=== PATIENT | female | born 1985 | race Caucasian/White ===

== ENCOUNTER 2023-07-28 13:54 | Emergency (ER) | payer BC ==
--- OUTSIDE RECORDS SUMMARY | 2023-07-28 13:57 | XMS REPORT | Continuity of Care Document ---
Author Name Unknown Address [address] [facility] [place] [address] [facility] [address] [facility] [address] [place] [address] Care Team Providers Care B2B Appointment Setter Name Role Phone CONG ALLEN Primary Care Physician DR CONG Arana Attending Clinician Zachery hernandez [phone] Attending Clinician DR CONG Kelly Admitting Clinician Zachery hernandez Payers Payer Name Policy Type Policy Number Effective Date Expirati on Date Source [facility] [id number] Allergies, Adverse Reactions, Alerts Allergy Name Allergy Type Status Severity Reaction(s) Onset Date Inactive Date Treating Clinician Comments Source PCN (obed avelar) DA Active SEVERE Vomiting [facility] SULFA (sulfona mide) DA Active SEVERE ANXIETY,; Dizziness [facility] Encounters Start Date/Time End Date/Time Encounter Type Admission Type Attending [facility] Care Facility Care Department Encounter ID Source 2022-11-20 14:04:07 Outpatient [facility] E[facility] [id number] [facility] 2022-11-18 12:28:17 Outpatient [facility] [id number] [facility] 2022-12-29 13:12:00 2022-12-29 13:12:00 Outpatient CONG IRVING [id number] [facility] [id number] [facility] 2022-12-29 11:59:00 2022-12-29 12:45:00 Outpatient CONG ALCALA [id number] [facility] [id number] César zurita [facility] l
--- NOTE | 2023-07-28 15:23 | RAD REPORT ---
EXAM DESCRIPTION: RAD - Chest Single View - 07/28/2023 3:06 pm CLINICAL HISTORY: CHEST PAIN Chest pain. COMPARISON: <Comparisons> FINDINGS: Portable technique limits examination quality. The lungs are grossly clear. The heart is normal in size. No displaced fractures. IMPRESSION: No acute intrathoracic process suspected.
[2023-07-28 15:46] LABS: Absolute Eosinophils 0.1 K/uL (0-0.5); Absolute Lymphocytes (CBC) 0.8 K/uL (0.7-4.9); Absolute Monocytes 0.4 K/uL (0.1-1.3); Absolute Neutrophil 3.7 K/uL (1.8-8.0); Basophils % 0.2 % (0-1.3); Eosinophils % 2.4 % (0-4.4); Hematocrit 37.3 % (36.0-45.0); Hemoglobin 12.9 g/dL (12.0-15.0); Lymphocytes % 16.4 % (15.3-44.8); MCH 29.2 pg (27.0-35.0); MCHC 34.6 g/dL (32.0-36.0); MCV 84.3 fL (80-100); MPV 10.7 fL (7.6-11.3); Monocytes % 7.4 % (3.3-12.3); Neutrophils % 73.6 % (41.7-73.7); Nucleated Red Blood Cells % 0.1 % (0-0); Platelets 131 thou/uL (152-406); RBC Red Blood Cell Count 4.43 M/uL (3.86-4.86); Red Cell Distribution Width 13.7 % (12.1-15.2)
[2023-07-28 16:02] LABS: Anion Gap 5.5 mEq/L (5.0-15.0); BUN Blood Urea Nitrogen 13 mg/dL (7-18); Bicarbonate 26 mEq/L (21-32); Glomerular Filtration Rate 76 ml/min (=/>90); Glucose Level 109 mg/dL (74-106); Magnesium 2.2 mg/dL (1.6-2.4); NT PRO-BNP 16 pg/mL (<125); Potassium 3.5 mEq/L (3.5-5.1); Sodium Level 138 mEq/L (136-145); Troponin High Sensitivity < 3.0 pg/mL (<58.9)
--- NOTE | 2023-07-28 16:54 | RAD REPORT ---
EXAM DESCRIPTION: CT - Chest For Pe Angio - 07/28/2023 4:45 pm CLINICAL HISTORY: Chest pain. CHEST PAIN COMPARISON: <Comparisons> TECHNIQUE: CT angiogram of the pulmonary arteries was performed with MIP. All CT scans are performed using dose optimization technique as appropriate and may include automated exposure control or mA/KV adjustment according to patient size. FINDINGS: No evidence of pulmonary thromboembolism. No acute aortic finding demonstrated. Patchy opacity medial right lung base suspicious developing pneumonia. No significant pericardial or pleural fluid. No concerning bony finding. IMPRESSION: No evidence of pulmonary thromboembolism. Possible developing infiltrate/ pneumonia medial right lung base.
--- NOTE | 2023-07-28 17:08 | ER ---
Nurse's Notes [facility] Name: Sandip Purvis Age: 37 yrs Sex: Female : 1985 Arrival Date: 07/28/2023 Time: 13:54 Bed 17 Private MD: Diagnosis: Pneumonia, unspecified organism Presentation: 07/27 14:28 Chief complaint: Patient states: chest pain/back pain that started yesterday. as6 Coronavirus screen: At this time, the client does not indicate any symptoms associated with coronavirus-19. Ebola Screen: No symptoms or risks identified at this time. Initial Sepsis Screen: Does the patient meet any 2 criteria? No. Patient's initial sepsis screen is negative. Does the patient have a suspected source of infection? No. Patient's initial sepsis screen is negative. Risk Assessment: Do you want to hurt yourself or someone else? Patient reports no desire to harm self or others. Onset of symptoms was July 27, 2023. 14:28 Method Of Arrival: Ambulatory as6 14:28 Acuity: BETSY 3 as6 Triage Assessment: 14:29 General: Appears in no apparent distress. Behavior is calm, cooperative. Pain: as6 Complains of pain in back and chest. Historical: - Allergies: 14:26 Sulfa (Sulfonamide Antibiotics); as6 14:26 PENICILLINS; as6 - PMHx: 14:26 PE; tachycardia; as6 - PSHx: 14:26 section; breast; tummy tuck; as6 - Immunization history:: Adult Immunizations up to date. - Infectious Disease History:: Denies. - Social history:: Smoking status: Patient denies any tobacco usage or history of. Screenin:18 [facility] ED Fall Risk Assessment (Adult) History of falling in the last 3 months, bp including since admission No falls in past 3 months (0 pts). Abuse screen: Denies threats or abuse. Denies injuries from another. Nutritional screening: No deficits noted. Tuberculosis screening: No symptoms or risk factors identified. Assessment: 14:30 General: Appears in no apparent distress. comfortable, Behavior is calm, cooperative, bp appropriate for age. Cardiovascular: Rhythm is sinus rhythm. 16:52 Reassessment: No changes from previously documented assessment. Patient is alert, bp oriented x 3, equal unlabored respirations, skin warm/dry/pink. 17:50 Reassessment: Patient appears in no apparent distress at this time. Patient states bp symptoms have improved. Vital Signs: 14:28 BP 124 / 84; Pulse 108; Resp 18 S; Temp 98; Pulse Ox 100% on R/A; Weight 73.48 kg (R); as6 Height 5 ft. 4 in. (R); Pain 5/10; 16:50 BP 113 / 61; Pulse 90; Resp 16; Pulse Ox 100% ; bp 17:50 BP 121 / 75; Pulse 85; Resp 16; Pulse Ox 100% ; bp 14:28 Body Mass Index 27.81 (73.48 kg, 162.56 cm) as6 14:28 Pain Scale: Adult as6 ED Course: 13:56 Patient arrived in ED. rg4 13:57 Yanet Burgos FNP-C is PHCP. kb 13:57 Wyatt Lopez MD is Attending Physician. kb 14:28 Arm band placed on. as6 14:29 Triage completed. as6 14:43 Shravan Watt, ELDER is Primary Nurse. bp 15:08 XRAY Chest (1 view) In Process Unspecified. EDMS 15:18 Patient has correct armband on for positive identification. Provided Education on: n/a. bp Client placed on continuous cardiac and pulse oximetry monitoring. NIBP monitoring applied. quality assurance monitor on. 15:18 Basic Metabolic Panel Sent. bp 15:18 CBC with Diff Sent. bp 15:18 Magnesium Sent. bp 15:18 NT PRO-BNP Sent. bp 15:18 Troponin HS Sent. bp 15:18 Inserted saline lock: 22 gauge in right antecubital area, using aseptic technique. bp Blood collected. 15:18 O2 via room air. bp 16:47 CT Chest For PE Angio In Process Unspecified. EDMS 17:27 No provider procedures requiring assistance completed. IV discontinued, intact, bp bleeding controlled, No redness/swelling at site. Pressure dressing applied. Administered Medications: 17:27 Drug: AZITHromycin PO 500 mg PO once Route: PO; bp 17:27 Follow up: Response: No adverse reaction bp Medication: 17:50 VIS not applicable for this client. bp Outcome: 17:07 Discharge ordered by . kb 17:28 Discharged to home ambulatory, with family, bp 17:28 Condition: stable 17:28 Discharge instructions given to patient, Instructed on discharge instructions, follow up and referral plans. medication usage, Demonstrated understanding of instructions, follow-up care, medications, Prescriptions given X 1, 17:51 Patient left the ED. bp Signatures: Dispatcher [employer] EDMS Yanet Burgos, CHITRA-Radha BUENROSTRO-Katelyn Vinson rg4 Shravan Watt, RN RN bp Rafy Jarquin RN RN as6 Corrections: (The following items were deleted from the chart) 14:27 14:26 PMHx: Pulmonary emphysema; as6 as6
--- NOTE | 2023-07-28 17:08 | EDPHYS ---
Physician Documentation [facility] Name: Sandip Purvis Age: 37 yrs Sex: Female : 1985 Arrival Date: 07/28/2023 Time: 13:54 Bed 17 Private MD: ED Physician Wyatt Lopez HPI: 07/27 14:20 This 37 yrs old Female presents to ER via Unassigned with complaints of Chest Pain, kb Back Pain. 14:20 Pt is a 37 year old female who presents for substernal chest pain that started last kb night and lasted 2 hours, starting at 1830. [place] short of breath. HR 70s-120s during that time. Similar symptoms at 0400 that was not as intense that lasted one hour. [place] fatigued afterwards. Denies symptoms at this time. Historical: - Allergies: 14:26 Sulfa (Sulfonamide Antibiotics); as6 14:26 PENICILLINS; as6 - PMHx: 14:26 PE; tachycardia; as6 - PSHx: 14:26 section; breast; tummy tuck; as6 - Immunization history:: Adult Immunizations up to date. - Infectious Disease History:: Denies. - Social history:: Smoking status: Patient denies any tobacco usage or history of. ROS: 14:56 Constitutional: As per HPI kb Exam: 14:56 Constitutional: This is a well developed, well nourished patient who is awake, alert, kb and in no acute distress. Head/Face: Normocephalic, atraumatic. ENT: Moist Mucous membranes Cardiovascular: Regular rate Respiratory: Respirations even and unlabored. No increased work of breathing. Talking in full sentences Abdomen/GI: Soft, non-tender. No distention Skin: Warm, dry with normal turgor. Normal color. MS/ Extremity: Pulses equal, no cyanosis. Neurovascular intact. Full, normal range of motion. Neuro: Awake and alert, GCS 15, oriented to person, place, time, and situation. Moves all extremities. Normal gait. 15:09 ECG was reviewed by the Attending Physician. kb Vital Signs: 14:28 BP 124 / 84; Pulse 108; Resp 18 S; Temp 98; Pulse Ox 100% on R/A; Weight 73.48 kg (R); as6 Height 5 ft. 4 in. (R); Pain 5/10; 16:50 BP 113 / 61; Pulse 90; Resp 16; Pulse Ox 100% ; bp 17:50 BP 121 / 75; Pulse 85; Resp 16; Pulse Ox 100% ; bp 14:28 Body Mass Index 27.81 (73.48 kg, 162.56 cm) as6 14:28 Pain Scale: Adult as6 MDM: 13:57 Patient medically screened. kb 17:06 Data reviewed: vital signs, nurses notes. kb 17:06 Differential diagnosis: abnormal EKG, acute myocardial infarction, chest wall pain, kb pneumonia, pulmonary embolus. Counseling: I had a detailed discussion with the patient and/or guardian regarding the historical points, exam findings, and any diagnostic results supporting the discharge/admit diagnosis, lab results, radiology results, the need for outpatient follow up, a family practitioner, to return to the emergency department if symptoms worsen or persist or if there are any questions or concerns that arise at home. 07/27 14:24 Order name: Basic Metabolic Panel; Complete Time: 16:03 kb 07/27 14:24 Order name: CBC with Diff; Complete Time: 15:49 kb 07/27 14:24 Order name: Magnesium; Complete Time: 16:03 kb 07/27 14:24 Order name: NT PRO-BNP; Complete Time: 16:03 kb 07/27 14:24 Order name: Troponin HS; Complete Time: 16:03 kb 07/27 14:24 Order name: XRAY Chest (1 view); Complete Time: 15:24 kb 07/27 14:24 Order name: CT Chest For PE Angio; Complete Time: 16:56 kb 07/27 14:24 Order name: Cardiac monitoring; Complete Time: 14:44 kb 07/27 14:24 Order name: EKG - Nurse/Tech; Complete Time: 15:07 kb 07/27 14:24 Order name: IV Saline Lock; Complete Time: 15:18 kb 07/27 14:24 Order name: Labs collected and sent; Complete Time: 15:18 kb 07/27 14:24 Order name: O2 Per Protocol; Complete Time: 14:43 kb 07/27 14:24 Order name: O2 Sat Monitoring; Complete Time: 14:43 kb EC:09 Rate is 102 beats/min. Rhythm is regular. QRS [place] is Normal. [place] interval is normal at kb 164 msec. QRS interval is normal at 78 msec. QT interval is normal at 448 msec. Administered Medications: 17:27 Drug: AZITHromycin PO 500 mg PO once Route: PO; bp 17:27 Follow up: Response: No adverse reaction bp Disposition Summary: 07/28/23 17:07 Discharge Ordered Notes: Location: Home kb Condition: Stable kb Diagnosis - Pneumonia, unspecified organism kb Followup: kb - With: Emergency Department - When: As needed - Reason: Worsening of condition Followup: kb - With: Private Physician - When: 2 - 3 days - Reason: Recheck today's complaints, Continuance of care, Re-evaluation by your physician Discharge Instructions: - Discharge Summary Sheet kb - Community-Acquired Pneumonia, Adult, [place] kb Forms: - Medication Reconciliation Form kb - Thank You Letter kb - Antibiotic Education kb - Prescription Opioid Use kb - Patient Portal Instructions kb - Leadership Thank You Letter kb Prescriptions: - Zithromax 500 mg Oral tablet - take 1 tablet ORAL route once daily for 4 days; 4 tablet; Refills: 0, Product kb Selection Permitted Signatures: Dispatcher [employer] EDAK Yanet Burgos, TRAFFIC LAW ATTORNEY-C TRAFFIC LAW ATTORNEY-Shravan Brown, ELDER RN Rafy Arreaga, ELDER RN as6 Wyatt Lopez MD MD ec2 Corrections: (The following items were deleted from the chart) 14:25 14:24 Chest Single View+RAD.RAD.BRZ ordered. EDAK EDMS 14:25 14:25 Chest For PE Angio+CT.RAD.BRZ ordered. EDAK EDMS 14:27 14:26 PMHx: Pulmonary emphysema; as6 as6 14:56 14:20 substernal chest pain that started last night and lasted 2 hours, starting at kb 1830. [place] short of breath. HR 70s-120s during that time. Similar symptoms at 0400 that was not as intense that lasted one hour. [place] fatigued afterwards. . kb
[2023-07-28 20:07] VITALS: BP 121/75; TEMP 98; O2SAT 100
--- NOTE | 2023-07-29 12:36 | EKG ---
Test Date: 2023-07-28 Test Time: 15:05:34 Medical Writer: HARRY MEASUREMENT RESULTS: Intervals: Rate: 102 PA: 164 QRSD: 78 QT: 344 QTc: 448 [place]: P: 61 PA: 164 QRS: 81 T: 23 INTERPRETIVE STATEMENTS: Sinus tachycardia Otherwise normal ECG No previous ECG available for comparison Electronically Signed On 07-29-23 12:33:22 CDT by Parvez Mena
== END 2023-07-28 17:51 | disposition home or self-care (01) ==
LOC: ER 13:54
DX: J18.9 Pneumonia, unspecified organism (principal); Z88.0 Allergy status to penicillin; Z88.2 Allergy status to sulfonamides
CPT/HCPCS: 93005; 85025; 80048; 36415; 83735; 84484; 83880; 71275; 71045; 99285; Q9967

== ENCOUNTER 2024-08-06 11:42 | Emergency (ER) | payer BC ==
--- OUTSIDE RECORDS SUMMARY | 2024-08-06 11:46 | XMS REPORT | Continuity of Care Document ---
Author Name Unknown Address [address] [facility] [address] [place] [address] [facility] Address [address] [facility] [place] [address] Care Team Providers Care Telemedicine Physician Name Role Phone RADHA HEALY Primary Care Physician [phone] PABLO HEALY Attending Clinician Unavailable ALDO JIMENES Attending Clinician Unavailable PRABHAKAR NICHOLSON Attending Clinician Unavailable FRANCESCA SAPP Attending Clinician Unavailable Erika Ramirez MA Attending Clinician Brant Rubalcava MD Attending Clinician [phone] ASHER BOLDEN Attending Clinician Unavailable ALDO JIMENES Attending Clinician Gabi vailable Ec[facility], Sl Attending Clinician Unavailable DR CONG ALLEN Attending Clinician Zachery hernandez [phone] Attending Clinician Unavailable ALDO JIMENES Admitting Clinician Gabi vailable Aldo Jimenes MD Admitting Clinician DR CONG ALLEN Admitting Clinician Zachery hernandez Payers Payer Name Policy Type Policy Number Effective Date Expirati on Date Source [place] [id number] 2022 00:00:00 [place] [id number] Problems Condition Name Condition Details Condition Category Status Onset Date Resolution Date Last Treatment Date Treating Clinician Comments Source Low back pain Low back pain Disease Active 07-06 00:00: 00 Austin Doran Epic Other interverte bral disc displaceme nt, lumbar region Other interverte bral disc displaceme nt, lumbar region Disease Active 07-06 00:00: 00 Austin Doran Epic Neck pain Problem [facility] Lumbar radiculopa thy Problem [facility] Allergies, Adverse Reactions, Alerts Allergy Name Allergy Type Status Severity Reaction(s) Onset Date Inactive Date Treating Clinician Comments Source Penicill ins Propensi ty to adverse reaction s Active GI intolerance 2023-04 00:00: 00 Austin Doran Epic Sulfa Antibiot ics Propensi ty to adverse reaction s Active Anxiety 2023-04 00:00: 00 Austin Doran Epic Penicill ins Allergy to substanc e Active Other 2023-04 0- 00:00: 00 [facility] Sulfa Antibiot ics Allergy to substanc e Active 2023-04 0 00:00: 00 Other Reaction( s): ANXIETY,; Dizziness [facility] PCN (penicil rosio) DA Active SEVERE Vomiting [facility] SULFA (sulfona mide) DA Active SEVERE ANXIETY,; Dizziness [facility] Social History Social Habit Start Date Stop Date Quantity Comments Source Gender identity Ezequiel Wong Sexual orientation [facility] ASSERTION Not Austin Wong Alcoholic beverage intake 2024-05-12 00:00:00 2024-05-12 00:00:00 Ex-drinker (finding) Sharon Wong History of Social function 2024-05-12 00:00:00 2024-05-12 00:00:00 Sharon Wong Tobacco use and exposure 2024-05-04 00:00:00 2024-05-04 00:00:00 Smokeless tobacco non-user [facility] Sex 2023-10-28 16:09:48 2023-10-28 16:09:48 Female (finding) [facility] Sex assigned at 1985 00:00:00 1985 00:00:00 F [facility] Smoking Status Start Date Stop Date Source Never smoked tobacco Austin zurita [facility] Medications Ordered Medication Name Filled Medication Name Start Date Stop Date Current Medication? Ordering Clinician Indication Dosage Frequency Signature (SIG) Comments Components Source estradiol (Estrace) 0.1 MG/GM vaginal cream 07-27 00:00: 00 08-27 04:59 :00 Yes [id number] 1g Insert 1 g into the vagina every night. Use 1 gram per vagina 2 x week at bedtime [facility] fluconazole (Diflucan) 150 MG tablet 06-29 00:00: 00 06-30 04:59 :00 Yes [id number] 150mg Take 1 tablet (150 mg total) by mouth 1 time for 1 dose. [facility] oxyCODONE (Roxicodone ) immediate release tablet 5 mg oxyCODONE (Roxicodone ) immediate release tablet 5 mg 05-12 13:30: 00 05-12 13:18 :00 No 5mg 5 mg, Oral, Once, On Thu05/12/24 at 1330, For 1 dose, Preprocedu re [facility] Amisulpride (Antiemetic ) solution 10 mg Amisulpride (Antiemetic ) solution 10 mg 05-12 11:15: 00 05-12 11:37 :00 No 10mg 10 mg, Intravenou s, Once, On Thu05/12/24 at 1115, For 1 dose, IVP over 1-2 minutes [facility] scopolamine (Transderm- Scop) 1 mg/72 hr patch 1 patch scopolamine (Transderm- Scop) 1 mg/72 hr patch 1 patch 05-12 09:35: 32 Yes 1{patch } 1 patch, Transderma l, Administer over 72 Hours, Once as needed, for nausea, hold if >65 years old or allergy, Starting on Thu05/12/24 at 0935, For 1 dose, Recovery [facility] On Unit, Apply behind ear. Avoid use in Elderly. Do not place for patients over 65yo Apply to hairless area of skin behind the ear. If patch becomes displaced, discard (folding in half; disposing away from children and pets) and apply new patch for remaining ordered duration Austin Wong ondansetron (Zofran) injection 4 mg ondansetron (Zofran) injection 4 mg 05-12 09:35: 32 05-12 09:37 :00 No 4mg 4 mg, Intravenou s, Once as needed, nausea, vomiting, Starting on Thu05/12/24 at 0935, For 1 dose, Recovery [facility] On Unit, May repeat once (maximum dose = 8mg). Do not repeat if patient has received Ondansetro n intraopera tively. Austin Wong glucagon injection 1 mg glucagon injection 1 mg 05-12 09:01: 03 Yes 1mg 1 mg, Intramuscu lar, As needed, For BG < 70 mg/dL if no IV access and patient is either Unconsciou s, unable to swallow or npo, Starting on Thu05/12/24 at 0901, Recovery (only), For BG < 70 mg/dL if no IV access and patient is either Unconsciou s, unable to swallow or npo and notify MD. Austin Wong dexAMETHaso ne (Decadron) injection 4 mg dexAMETHaso ne (Decadron) injection 4 mg 05-12 09:01: 03 Yes 4mg 4 mg, Intravenou s, Once as needed, nausea/vom iting not responsive to ondansetro n., Starting on Thu05/12/24 at 0901, For 1 dose, Recovery (only) Austin Wong diphenhydrA MINE (BENADryl) injection 12.5 mg diphenhydrA MINE (BENADryl) injection 12.5 mg 05-12 09:01: 03 Yes 12.5mg 12.5 mg, Intravenou s, Once as needed, itching, Starting on Thu05/12/24 at 0901, For 1 dose, Recovery (only) Austin Wong HYDROmorpho ne (Dilaudid) injection 0.5 mg HYDROmorpho ne (Dilaudid) injection 0.5 mg 05-12 09:01: 03 Yes .5mg 0.5 mg, Intravenou s, Every 10 min PRN, severe pain (7-10), Starting on Thu05/12/24 at 0901, For 4 doses, Recovery (only), Hold for respirator y rate or 8 or less. Austin Doran [facility] fentaNYL (Sublimaze) injection 25 mcg fentaNYL (Sublimaze) injection 25 mcg 05-12 09:01: 03 Yes 25ug 25 mcg, Intravenou s, Every 5 min PRN, moderate pain (4-6), Starting on Thu05/12/24 at 09, For 4 doses, Recovery (only), Hold for respirator y rate of 8 or less. Austin Doran [facility] labetalol injection 10 mg labetalol injection 10 mg 05-12 09:01: 03 Yes 10mg 10 mg, Intravenou s, Every 5 min PRN, high blood pressure, Use for HTN with HR >70bpm, otherwise use hydralazin e. Systolic blood pressure greater than 160 mmHg and/or Diastolic blood pressure greater than 90 mmHg. Hold if Heart Rate less than 60 beats per minute., Starting on Thu05/12/24 at 0901, Recovery (only) Austin Doran [facility] hydrALAZINE injection 10 mg hydrALAZINE injection 10 mg 05-12 09:01: 03 Yes 10mg 10 mg, Intravenou s, Every 20 min PRN, high blood pressure, Systolic blood pressure greater than 160 mmHg and/or Diastolic blood pressure greater than 90 mmHg. Hold is Heart Rate greater than 100 beats per minute., Starting on Thu05/12/24 at 09, For 2 doses, Recovery (only) Austin Doran [facility] promethazin e (Phenergan) injection 6.25 mg promethazin e (Phenergan) injection 6.25 mg 05-12 09:01: 03 05-12 10:30 :00 No 6.25mg 6.25 mg, Intramuscu lar, Once as needed, nausea, vomiting, not responsive to dexamethas one., Starting on Thu05/12/24 at 0901, For 1 dose, Recovery (only), Do not give if patient is sedated or has KERLINE. Austin zurita [facility] sodium chloride 0.9 % infusion sodium chloride 0.9 % infusion 05-12 07:15: 00 Yes 75mL/h 75 mL/hr, Intravenou s, Continuous , Starting on Thu05/12/24 at 0715, Intraproce dure Austin Doran Epic lactated Ringer's infusion lactated Ringer's infusion 05-12 06:15: 00 Yes 75mL/h 75 mL/hr, Intravenou s, Continuous , Starting on Thu05/12/24 at 0615, Preprocedu re, Anesthesia Pre-op [facility] famotidine (Pepcid) tablet 20 mg famotidine (Pepcid) tablet 20 mg 05-12 06:15: 00 05-12 07:03 :00 No 20mg 20 mg, Oral, Once, On Thu05/12/24 at 0615, For 1 dose, Preprocedu re, DO NOT GIVE IF PATIENT HAS RECEIVED H2 ANTAGONIST /FAMOTIDIN E IN THE PAST SIX HOURS. Anesthesia Pre-op Tommymanish Doran Epic acetaminoph en (Tylenol) tablet 1,000 mg acetaminoph en (Tylenol) tablet 1,000 mg 05-12 06:15: 00 05-12 07:03 :00 No 1000mg 1,000 mg, Oral, Once, On Thu05/12/24 at 0615, For 1 dose, Preprocedu re, DO NOT GIVE IF PATIENT HAS RECEIVED ACETAMINOP HEN IN THE PAST SIX HOURS. Maybe administer ed with midazolam. Max acetaminop hen from all sources = 4,000 mg in 24 hours. Anesthesia Pre-op Austin zurita [facility] sodium chloride (NS) 0.9 % flush 10 mL sodium chloride (NS) 0.9 % flush 10 mL 05-12 06:03: 45 Yes 10mL Q8H [Order 1 Start] Name: Insert peripheral IV Signed Summary: Once, On Thu05/12/24 at 0604, For 1 occurrence , Preprocedu re [Order 1 End] [Order 2 Start] Name: Saline lock IV Signed Summary: Once, On Thu05/12/24 at 0604, For 1 occurrence , Preprocedu re [Order 2 End] [Order 3 Start] Name: sodium chloride (NS) 0.9 % flush 10 mL Signed Summary: 10 mL, Intravenou s, Every 8 hours PRN, line care, Starting on Thu05/12/24 at 0603, Preprocedu re [Order 3 End] Austin Wong vancomycin (Vancocin) 1,000 mg in sodium chloride 0.9 % 250 mL IVPB (vial-mate) vancomycin (Vancocin) 1,000 mg in sodium chloride 0.9 % 250 mL IVPB (vial-mate) 05-12 06:03: 45 05-12 06:02 :45 No 1000mg 1,000 mg, Intravenou s, at 250 mL/hr, Administer over 60 Minutes, Oncall, Starting on Thu05/12/24 at 0603, For 1 dose, Preprocedu re, For patients < 80 kg.? Administer within 120 minutes prior to skin incision. (No re-dosing intra-oper atively). , Suspected Indication (Select all that apply): Surgical Prophylaxi s, Indication s: ABX: Surgical Prophylaxi s Austin Wong SEMAGLUTIDE , 1 MG/DOSE, SC SEMAGLUTIDE , 1 MG/DOSE, SC 05-05 00:39: 46 Yes Inject under the skin. Austin Wong docusate sodium (Colace) 100 MG capsule 2023-04 00:00: 00 Yes [id number] 100mg Q.5D Take 1 capsule (100 mg total) by mouth in the morning and 1 capsule (100 mg total) in the evening. [facility] solifenacin (VESIcare) 5 MG tablet 2023-04 00:00: 00 04-22 05:59 :00 No [id number] 5mg QD Take 1 tablet (5 mg total) by mouth 1 (one) time each day. Swallow tablet whole; do not crush, chew, or split. [facility] meloxicam (Mobic) 15 MG tablet 2023-04 00:00: 00 07-27 00:00 :00 No Take 1 tablet(s) every day by oral route as needed for 30 days. [facility] b complex vitamins capsule 2023-04 13:49: 11 Yes 1{paddyu le} QD Take 1 capsule by mouth 1 (one) time each day. [facility] Turmeric 5-1000 MG capsule 2023-04 13:49: 11 Yes Take by mouth. [facility] omega-3 (FISH OIL) 300 MG capsule 2023-04 13:49: 11 Yes QD Take by mouth 1 (one) time each day. [facility] ASHWAGANDHA 35 PO 2023-04 13:49: 11 Yes Take by mouth. [facility] Semaglutide ,0.25 or 0.5MG/DOS, 2 MG/3ML solution pen-injecto r 2023-04 13:49: 11 07-27 00:00 :00 No Inject under the skin. [facility] Vital Signs Vital Name Observation Time Observation Value Comments S ource Systolic blood pressure 2024-07-27 19:12:00 100 mm[Hg] [facility] Diastolic blood pressure 2024-07-27 19:12:00 72 mm[Hg] [facility] Body temperature 2024-07-27 19:12:00 36.22 Hui [facility] Body height 2024-07-27 19:12:00 [facility]6 [facility] weight 2024-07-27 19:12:[facility] 2024-07-27 19:12:00 28.91 [facility] Systolic blood pressure 2024-06-29 16:02:00 110 mm[Hg] [facility] Diastolic blood pressure 2024-06-29 16:02:00 78 mm[Hg] [facility] Body temperature 2024-06-29 16:02:00 36.67 Hui [facility] Body height 2024-06-29 16:02:00 162.6 cm [facility] Body weight 2024-06-29 16:02:00 73[facility]664 [facility] BMI 2024-06-29 16:02:00 27.88 kg[facility]m2 [facility] Systolic blood pressure 2024-05-26 19:13:00 112 mm[Hg] [facility] Diastolic blood pressure 2024-05-26 19:13:00 64 mm[Hg] [facility] Body height 2024-05-26 19:13:00 162.6 cm [facility] Body weight 2024-05-26 19:13:00 75.297 [facility] BMI 2024-05-26 19:13:00 28.49 kg/m2 [facility]alt Systolic blood pressure 2024-05-12 13:15:00 119 mm[Hg] [facility] Diastolic blood pressure 2024-05-12 13:15:00 72 mm[Hg] [facility] Epic Heart rate 2024-05-12 13:15:00 95 /min [facility] Respiratory rate 2024-05-12 13:15:00 17 /min [facility] Oxygen saturation in Arterial blood by Pulse oximetry 2024-05-12 13:15:00 99 /min [facility] Body temperature 2024-05-12 12:50:00 36.17 [facility] Body height 2024-05-12 06:10:00 162.6 cm [facility] Body weight 2024-05-12 06:10:00 75.751 kg [facility] BMI 2024-05-12 06:10:00 28.67 kg/m2 [facility] Systolic blood pressure 2024-05-12 13:15:00 119 mm[Hg] [facility] Diastolic blood pressure 2024-05-12 13:15:00 72 mm[Hg] [facility] Heart rate 2024-05-12 13:15:00 95 /min [facility] Epic Respiratory rate 2024-05-12 13:15:00 17 /min [facility] Epic Oxygen saturation in Arterial blood by Pulse oximetry 2024-05-12 13:15:00 99 /min [facility] Body temperature 2024-05-12 12:50:00 36.17 [facility] Body height 2024-05-12 06:10:00 162.6 cm Ezequiel rial Espinoza [facility] Body weight 2024-05-12 06:10:00 75.751 kg Ezequiel rial [facility] BMI 2024-05-12 06:10:00 28.67 kg/m2 Ezequiel [facility] Systolic blood pressure 2024-03-28 21:50:00 112 mm[Hg] [facility] Diastolic blood pressure 2024-03-28 21:50:00 66 mm[Hg] [facility] Body height 2024-03-28 21:50:00 162.6 [facility] Body weight 2024-03-28 21:50:00 78.926 [facility] BMI 2024-03-28 21:50:00 29.87 kg/m2 [facility] Systolic blood pressure 2024-03-22 21:27:00 116 mm[Hg] [facility] Diastolic blood pressure 2024-03-22 21:27:00 78 mm[Hg] [facility] Body height 2024-03-22 21:27:00 162.6 cm [facility] Body weight 2024-03-22 21:27:00 78.926 [facility] BMI 2024-03-22 21:27:00 29.87 kg/m2 [facility] Systolic blood pressure 2024-02-08 18:42:00 122 mm[Hg] [facility] Diastolic blood pressure 2024-02-08 18:42:00 76 mm[Hg] [facility] Body height 2024-02-08 18:42:00 162.6 cm [facility] Body weight 2024-02-08 18:42:00 78.472 [facility] BMI 2024-02-08 18:42:00 29.70 kg/m2 [facility] Procedures Procedure Date / Time Performed Performing Clinicia n Source XR lumbar spine 2-3 views 2024-07-25 00:00:00 [facility] POCT glucose meter docked device 2024-06-11 00:00:00 [facility] POCT URINALYSIS DIPSTICK 2024-05-26 19:38:00 Prabhakar Nicholson [facility] COLPORRHAPHY 2024-05-12 07:32:00 Korina Jimenes [facility] BLADDER SLING, FEMALE 2024-05-12 07:32:00 Aldo Wesley [facility] CYSTOSCOPY 2024-05-12 07:32:00 Florin Korina [place] A[facility]okamran [facility] COLPORRHAPHY 2024-05-12 07:30:00 Florin [facility] BLADDER SLING, FEMALE 2024-05-12 07:30:00 Lisa greenfield [facility] CYSTOSCOPY 2024-05-12 07:30:00 [facility] POC GLUCOSE UNSOLICITED RESULTS 2024-05-12 06:59:00 [facility] BETA HCG QUALITATIVE URINE 2024-05-12 06:40:00 José Miguel Prince [facility] Basic Metabolic Panel 2024-05-12 00:00:00 [facility] Complete Blood Count w/Diff and Platelet 2024-05-12 00:00:00 [facility] Hepatitis C Antibody w/HCV RNA PCR if Indicated 2024-05-12 00:00:00 [facility] HIV 4th Gen with Reflex 2024-05-12 00:00:00 [facility] POCT glucose meter docked device 2024-05-12 00:00:00 [facility] ECG 12 lead 2024-05-04 00:00:00 [facility] POCT URINALYSIS DIPSTICK 2024-03-22 21:47:00 Prabhakar Nicholson [facility] POCT URINALYSIS DIPSTICK 2024-02-08 19:25:00 Aldo Jimenes [facility] Oxygen Therapy - Patient Type: Adult; Device: Nasal Cannula; Rate in liters per minute: 2 Lpm; Follow Respiratory Pathway: Yes [facility] Encounters Start Date/Time End Date/Time Encounter Type Admission Type Attending [facility] Facility Care Department Encounter ID Source 2024-02-17 13:00:00 Inpatient PABLO MARKHAM [facility] [id number] [facility] 2022-11-20 14:04:07 Outpatient ELCAMPO ELCAMPO [id number] [facility] 2022-11-18 12:28:17 Outpatient ELCAMPO ELCAMPO [id number] [facility] 2024-09-23 07:50:00 2024-09-23 07:50:00 Outpatient ALDO JIMENES [facility] [id number] [facility] 2024-08-25 14:10:00 2024-08-25 14:10:00 Outpatient PRABHAKAR NICHOLSON [facility] [id number] [facility] 2024-08-09 09:00:00 2024-08-09 09:00:00 Outpatient FRANCESCA SAPP [facility] [id number] [facility] 2024-08-08 10:15:00 2024-08-08 10:15:00 Outpatient ALDO JIMENES [facility] [id number] [facility] 2024-08-05 13:20:00 2024-08-05 13:20:00 Outpatient ALDO JIMENES [facility] [id number] [facility] 2024-08-01 08:45:00 2024-08-01 08:45:00 Outpatient ALDO JIMENES [facility] [id number] [facility] 2024-05-30 00:00:00 2024-07-30 22:46:32 Results Follow-Up Prabhakar Nicholson [facility] [place] [address] AND WOMENS 1.2.840.114 350.1.13.58 9.2.7.2.686 [id number] [facility] 2024-07-27 14:20:00 2024-07-27 16:01:42 Office Visit Prabhakar Nicholson [facility] [place] [facility] [address] AND WOMENS 1.2.840.114 350.1.13.58 9.2.7.2.686 [id number] [facility] 2024-07-25 00:00:00 2024-07-25 14:17:52 Orders Only Erika Ramirez Jennifer Muskego 9180 [id number] 350.1.13.70 8.2.7.2.686 [id number] Austin zurita [facility] 2024-06-21 00:00:00 2024-07-22 23:53:03 Telephone Reynaldo Brant Vizcarra Muskego 9180 1.2.840.114 350.1.13.70 8.2.7.2.686 [id number] [facility] 2024-06-29 11:10:00 2024-06-29 11:21:36 Office Visit Prabhakar Nicholson [facility] AND WOMENS 1.2.840.114 350.1.13.58 9.2.7.2.686 [id number] [facility] 2024-06-23 13:20:00 2024-06-23 13:20:00 Outpatient PRABHAKAR NICHOLSON [facility] [id number] [facility] 2024-05-26 13:20:00 2024-05-26 14:34:57 Office Visit PRABHAKAR NICHOLSON [facility] [address] AND WOMENS 1.2.840.114 350.1.13.58 9.2.7.2.686 [id number] [facility] 2024-05-17 07:54:00 2024-05-20 23:59:00 Discharged Recurring [facility] [id number] [facility] 2024-05-17 07:54:00 2024-05-20 00:01:00 Outpatient ASHER GIFFORD [facility] [id number] [facility] 2024-05-12 05:30:00 2024-05-12 14:05:00 Outpatient Elective ALDO JIMENES [facility] [id number] [facility] 2024-05-12 05:30:00 2024-05-12 14:05:00 Hospital Encounter Aldo Jimenes [facility] 1.2.840.114 350.1.13.70 8.2.7.2.686 [id number] [facility] 2024-05-05 09:00:00 2024-05-05 09:00:00 Outpatient EL GIST, ASHER [facility] [id number] [facility] 2024-05-04 17:42:15 2024-05-04 23:59:00 Outpatient Elective MHESL MHESL [id number] [facility] 2024-05-04 11:00:00 2024-05-04 23:59:00 Hospital Encounter Ecg, Sl [facility] 1..840.114 350.1.13.70 8.2.7.2.686 [id number] [place] zurita [facility] 2024-05-04 11:08:06 2024-05-04 16:46:59 Outpatient Elective MHESL MHESL [id number] [facility] 2024-05-03 08:48:00 2024-05-03 08:48:00 Outpatient EL GIST, ASHER [facility] [id number] [facility] 2024-04-26 08:57:00 2024-04-26 08:57:00 Outpatient EL GIST, ASHER [facility] [id number] [facility] 2024-04-22 06:01:00 2024-04-22 06:01:00 Outpatient EL GISTASHER [facility] [id number] [facility] 2024-04-19 07:45:00 2024-04-19 23:59:00 Discharged Recurring [facility] [id number] [facility] 2024-04-19 07:45:00 2024-04-19 00:01:00 Outpatient EL GIST, ASHER [facility] [id number] [facility] 2024-03-28 16:10:00 2024-03-28 17:10:32 Office Visit Aldo Jimenes [facility] AND WOMENS 1..840.114 350.1.13.58 9.2.7.2.686 [id number] [facility] 2024-03-22 15:20:00 2024-03-22 16:17:45 Procedure Visit Aldo Jimenes [facility] [place] [facility] [address] AND WOMENS 1.2.840.114 350.1.13.58 9.2.7.2.686 [id number] [facility] 2024-02-08 13:40:00 2024-02-08 14:29:39 Office Visit Aldo Jimenes [facility] AND WOMENS 1.2.840.114 350.1.13.58 9.2.7.2.686 [id number] [facility] 2024-01-07 11:10:00 2024-01-07 11:10:00 Outpatient EFFIE HEALY PABLO [facility] [id number] [facility] 2022-12-29 13:12:00 2022-12-29 13:12:00 Outpatient CONG IRVING [id number] [facility] [id number] [facility] 2022-12-29 11:59:00 2022-12-29 12:45:00 Outpatient CONG ALCALA [id number] [facility] [id number] [facility] Results Test Description Test Time Test Comments Results Result Co mments Source [facility] [id number] 07:23:37* Test Item Value Reference Range Interpretation Comme nts POC Glu (test code = 9692402693) 90 mg/dL 70-99 POC Performing Location (shane t code = 8212213337) DS/ REC/OR [facility] urinalysis dipstick manually [id number] 21:47:12* Test Item Value Reference Range Interpretation Comme nts Glucose, UA (test code = 1535635) Negative Negative Bilirubin, UA (test code = 9406021) Negative Negative Ketones, Urine (test code = 16771-5) Negative Negative, Trace Spec Grav, UA (test code = 100406794) 1.025 Blood, UA (test code = 897807034) Negative pH, UA (test code = 3699386) 6.5 5.0-8.5 Protein, UA (test code = 5910915) Negative Negative, Trace, 200(+2)mg/dL, 15/mg/dL UROBILINOGEN, POC (test code = 77011194) 1.0 Nitrite, UA (test code = 3798099) Negative Negative, Trace Leukocytes, UA (test code = 0069860) Negative Negative, Trace [facility] dipstick manually [id number] 19:25:06* Test Item Value Reference Range Interpretation Comme nts Glucose, UA (test code = [id number]) Negative Negative Bilirubin, UA (test code = 2647639) Negative Negative Ketones, Urine (test code = 13633-9) Negative Negative, Trace Spec Grav, UA (test code = 558314084) >=1.030 Blood, UA (test code = 169839206) Negative pH, UA (test code = 7151530) 6.0 5.0-8.5 Protein, UA (test code = 6363605) Negative Negative, Trace, 200(+2)mg/dL, 15/mg/dL UROBILINOGEN, POC (test code = 76929060) 0.2 Nitrite, UA (test code = 0173454) Negative Negative, Trace Leukocytes, UA (test code = 3469462) Negative Negative, Trace Lab Interpretation (test cod e = 56694-4) Normal [facility] History and Physical Notes Date/Time Note Provider Source 2024-05-12 07:26:25 H&P reviewed. The patient was examined and there are no changes to the H&P. Aldo Jimenes MD, URPS [facility] TYPEWRITER OPERATOR Source Note - Aldo Jimenes MD - 04/14/2024 8:46 AM TELETYPEWRITER OPERATOR H&P for surgery on 05/12/24: HPI: 38 yo scheduled on 05/12/24 for posterior colporrhaphy, Altis sling, and cystoscopy. History from new visit on 02/08/24: 38 year old female, referred by a friend, for evaluation of urinary leakage and prolapse. Past TAX EXAMINER history: x 4 (ages 15, 14, 13, 9). Endometrial ablation for menorrhagia. Past history: No recurrent UTIs. No history of hematuria or stones. Today (02/08/24), she presents with bothersome mixed urinary incontinence, with slightly more stress incontinence than urgency incontinence. There are several triggers that initiate urgency including washing the dishes, running water, changing positions, and arriving home. Urgency incontinence does not necessarily occur every time she experiences an urge however. ELLIE occurs with coughing, laughing, sneezing, and sudden movements, most of the time. Though she is not wearing pads for above she will often have to change her clothing. In addition to her leakage concerns she has been informed of a rectocele on examination. She requires perineal pressure or splinting in order to facilitate bowel movements regularly. No fecal incontinence. 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 Urodynamics summary from 03/22/24: Uroflow- Normal flow curve. Void of 82 ml; cath PVR 20 ml. CMG- Low normal sensations with subjective capacity at 203 ml. No ELLIE or DI to capacity. UPP average was 44 cm H2O. VPS- Normal flow curve. Void of 239 ml; Bladder Scan PVR 134 ml. Max Pdet 0 cm H2O. Solifenacin 5 mg daily was recommended after her 03/22/2024 urodynamics to address bothersome urgency/urgency incontinence. As of 03/24/24, she had been on Solifenacin for a few days, with no significant changes in urgency/urgency incontinence yet. Past OB History: OB History No obstetric history on file. Past Medical History: Medical History Past Medical History: Diagnosis Date Pulmonary embolism (CMS/HCC) Past Surgical History: Surgical History Past Surgical History: Procedure Laterality Date ABDOMINAL SURGERY 2014 tummy tuck SECTION, CLASSIC 2013 OTHER - LEGACY DATA VALUE SEE COMMENTS uterine ablation Family History: Family History Family History Problem Relation Name Age of Onset Hypertension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 bladder, or kidneys. ? Take a small tissue sample (biopsy) of bladder or urethral tissue. ? Treat certain problems (such as removing kidney stones). ? Place a tube (stent) to bypass a blockage. ? Take special X-rays of the kidneys. Based on the findings, your provider may advise other tests or treatments. What is a cystoscope? A cystoscope is a telescope-like tube that contains lenses and small glass wires that make bright light (fiberoptics). The cystoscope may be straight and rigid. Or it may be flexible to bend around curves in the urethra. The healthcare provider may look directly into the cystoscope, or project the image onto a screen. Getting ready ? Ask your healthcare provider if you should stop taking any medicines before the procedure. ? You will be asked to read and sign a form consenting to the surgery. Be sure to read the entire document. Have all of your questions answered before signing it. ? Follow any directions you're given for not eating or drinking before the procedure. ? Follow any other instructions your healthcare provider gives you. Tell your healthcare provider before the exam if you: ? Take any medicines, such as aspirin or blood thinners. This also includes any cddu-qty-xqawass and prescription medicines, vitamins, herbs, and other supplements. ? Have allergies to any medicines ? Are or think you may be During the procedure Cystoscopy is usually done as an outpatient procedure in a surgery center or hospital. It is a fairly short procedure. But it may take longer if a biopsy, X-ray, or treatment needs to be done. During the procedure: ? You lie on an exam table on your back, knees bent and legs apart. You're covered with a drape. ? Your urethra and the area around it are washed. Anesthetic jelly may be applied to numb the urethra. Other pain medicine is often not needed. In some cases, you may be offered a mild sedative to help you relax. If a more extensive procedure is to be done, such as a biopsy or kidney stone removal, general anesthesia may be given. This is to let you comfortably sleep during the procedure. Often a one-time antibiotic is given. ? The cystoscope is inserted. A sterile fluid is put into the bladder to expand it. You may feel pressure from this fluid. ? When the procedure is done, the cystoscope is removed. After the procedure If you had any type of sedation, general anesthesia, or spinal anesthesia, you must have someone drive you home. Once you?re home: ? Drink plenty of fluids. ? You may have a burning feeling or light bleeding when you pee. This is normal. ? Medicines may be prescribed to ease any mild pain or prevent infection. Take these as directed. When to call your healthcare provider Call your healthcare provider if you have any of these after the procedure: ? Heavy bleeding or blood clots ? Burning that lasts more than 1 day ? Fever of 100.4? F ( 38?C ) or higher, or as directed by your provider ? Trouble peeing Last Reviewed Date: 2023 00:00:00 ? [id number] [employer]. All rights reserved. This information is not intended as a substitute for professional medical care. Always follow your healthcare professional's instructions. [facility] General Surgery Registered Nursemorireynaldo DoranIanpfcx1916-78-45 14:01:42 Images from the original note were not included. 26 Preventing Surgical Site Infection After Surgery Wash your hands Wash your hands after using the bathroom, before and after eating, after coughing or sneezing, after using a tissue, after touching or changing a dressing bandage, or after touching any object or surface that may be contaminated. Clean environment Use freshly laundered sheets, blankets, towels, and washcloths. Wear freshly laundered loose fitting clothes to avoid rubbing on the incision Medications Even if you feel better, if you were given antibiotics, take them until they are finished or your healthcare provider tells you to stop. Incision and drain care ? Keep your incision clean and dry. Unless instructed otherwise, it is okay to wash the skin around your incision with soap and water. Ask your surgeon when you can shower or bathe. ? If you have a dressing over your incision or a drain, follow your doctor's instructions. If dressing gets soiled or soaked, call your surgeon. ? Avoid swimming or sitting in the bathtub, pool, or hot tub until your incision is closed. ? Avoid picking, scratching, or pulling at your incision. ? When coughing or sneezing (abdominal or chest procedures) hold a pillow against your incision with both hands. This is called "splinting." Doing this helps protect your incision and decreases discomfort. ? Do not use lotions, oils, or creams on your incision unless prescribed. ? Try to avoid bumping your incision to prevent injury. Ask for help if unsteady or weak. Diabetes If you are diabetic, recommended target blood sugar is 110-150 (for cardiac surgery patients, target blood sugar is <180) for proper wound healing. If your blood sugar is not in control, contact your Primary Care Provider. Smoking If you are a smoker or exposed to secondhand smoke, consider quitting smoking and speak with your physician. Smoking increases the chance that your bones and tissue may not heal well, and the surgical area may have pain after surgery. Pets If you have pets, it is recommended that you do not sleep with or allow your pet on your lap or against your incision until it is healed. Pet skin or fur and saliva can also have germs that could cause infection. Follow-up care Follow up with your healthcare provider with questions or as advised. If you have any symptoms of an infection, such as redness and pain at the surgery site, drainage or fever, call your surgeon immediately. We are committed to your health and safety?we are here for you. KA Doran2025-01-23 14:01:42 Images from the original note were not included. [id number] Understanding Opioid Medicines for Pain Management Opioids are medicines that can help ease pain. They are stronger than most jyjm-gje-advlpib pain relievers and must be prescribed by a healthcare provider. They can be used to treat both acute and chronic pain that ranges from moderate to severe. Opioids can be safe and effective when used correctly. But they do come with serious risks and side effects. For this reason, they should be used only if other medicines or treatments have not done enough to ease or manage pain. What is pain? Pain is your body?s way of telling you something is wrong. It makes you pull your hand away from a flame or avoid walking on an injured leg. Pain starts in receptor cells found beneath the skin and in organs throughout the body. When you are sick or injured, these receptor cells send signals along nerve pathways to the spinal cord, which then sends the signals to the brain. The brain interprets the signals as pain. In response, it sends back signals to protect the body. The brain also releases its own natural painkillers called endorphins to help reduce pain. Once the source of the pain heals, the pain often goes away. Types of pain Pain can one be of two types: acute or chronic. Both types respond to treatment. ? Acute pain typically lasts fewer than 3 months. It goes away when the cause is treated. Common causes of acute pain include injury or illness. Surgery can lead to short-term pain during healing. And women have acute pain during and after childbirth. In some cases, acute pain can lead to chronic pain over time. ? Chronic pain often lasts longer than 3 months. This includes pain that comes and goes or that is continuous. Chronic pain may be due to an ongoing health problem, such as arthritis. Or it may linger after an injury that has healed, such as a broken bone. Problems with the body?s pain-control system may also lead to chronic pain. Sometimes, chronic pain can occur with no clear cause. The pain cycle Pain can affect all aspects of your life. For example, sleep, mood, activity, and energy level are all affected by pain. Being tired, depressed, or inactive makes the pain worse and harder to cope with. This leads to a cycle of pain. How opioids work Opioids work by attaching to special receptors found in the brain, spinal cord, and other organs. When opioids attach to these receptors, they can block or suppress how you feel pain. Opioids can also make you feel good or relaxed. They affect areas of the brain that produce feelings of pleasure. Types of opioids There are two types of opioids: short-acting/immediate-release (SA/IR) and long-acting/extended-release (LA/ER). Short-acting opioids work faster than long-acting opioids. But they give pain relief for only short periods. Long-acting opioids work slower than short-acting opioids. But they ease pain for longer periods. Many opioids come in both short- and long-acting formulas. They include: ? Codeine with acetaminophen ? Fentanyl ? Hydrocodone (with or without acetaminophen) ? Hydromorphone ? Meperidine ? Methadone ? Morphine ? Oxycodone (with or without acetaminophen) ? Tramadol If you are prescribed opioids, you will likely be started on a short-acting type at the lowest dose. The dose may then be adjusted as needed based on your response to the medicine and follow-up with your healthcare provider. If appropriate, you may start using a long-acting type opioid. In some cases, you may be prescribed both types of opioids to help manage different types of pain. Any changes will also depend on how you handle pain and side effects from the medicine. Side effects of opioids Side effects of opioid medicines include the following: ? Constipation ? Feeling sleepy (drowsy) ? Nausea Some side effects of opioid medicines can be life-threatening. Symptoms of opioid overdose include the following: ? Slow heart rate ? Shallow or slowed breathing ? Loss of consciousness When taking opioids, there is a possibility of abusing the medicine, physical dependence, and addiction. Take opioid medicines only as directed by your healthcare provider. Don't take opioids with benzodiazepines, such as alprazolam or lorazepam. Combining these medicines can have serious risks. These include extreme sleepiness, slowed breathing, and . Tell your healthcare provider if you are taking benzodiazepines. Note Studies show that opioids provide short-term help for moderate to severe pain. But the benefits of long-term use of opioids for treating pain remain unclear. You should only stay on opioids if they continue to improve pain and function without raising the risks to your health. How opioids are given Most opioids are taken by mouth. They often come in pill form. But some may come in the form of liquids and even sweetened lozenges. Certain opioids also may be injected under the skin, into a muscle, or into a vein. Or they may be absorbed through the skin via a patch. Know your options Keep in mind that opioids are not the only option for treating pain. Nonopioid options may work just as well. They may have fewer risks and side effects. Talk with your healthcare provider about which treatment plan is right for you. Nonopioid options can include: ? Other pain relievers, such as acetaminophen or nonsteroidal anti-inflammatory drugs (NSAIDs) such as ibuprofen or naproxen ? Other classes of medicines such as anticonvulsants, antidepressants, and muscle relaxers ? Exercise and physical therapy ? Cognitive behavioral therapy, which can help you learn different ways to respond and cope with pain ? Mind/body therapies such as deep breathing, distraction, visualization, meditation, or biofeedback ? Complementary therapies such as massage, acupuncture and acupressure, or family member caretaker ? Various procedures, such as transcutaneous electrical nerve stimulation (TENS), implantation of a spinal pump, and nerve ablation Last Reviewed Date: 2022 00:00:00 ? [id number] The [employer]. All rights reserved. This information is not intended as a substitute for professional medical care. Always follow your healthcare professional's instructions. [facility]2025-01-23 14:01:42 Images from the original note were not included. [id number] Using an Incentive Spirometer An incentive spirometer is a device that helps you do deep breathing exercises after surgery. Or it helps lower the risk for breathing problems if you have a lung disease or condition. These exercises expand your lungs, aid in circulation, and may help prevent pneumonia. Deep breathing exercises also help you breathe better and improve the function of your lungs by: ? Keeping your lungs clear ? Strengthening your breathing muscles ? Helping prevent respiratory complications or problems The incentive spirometer gives you a way to take an active part in your recovery. A nurse or respiratory therapist will teach you breathing exercises. To do these exercises, you will breathe in through your mouth and not your nose. The incentive spirometer only works correctly if you breathe in through your mouth. Deep breathing expands the lungs, aids circulation, and helps prevent pneumonia. Your healthcare provider or their staff will tell you how to use the device, your targeted volume(s), and provide other helpful tips to prevent complications (such as pain, dizziness, feeling lightheaded) when blowing in the incentive spirometer. Steps to clear lungs Step 1. Exhale normally. Then, inhale normally. ? Relax and breathe out. Step 2. Place your lips tightly around the mouthpiece. ? Make sure the device is upright and not tilted. ? Sit up and breathe out (exhale) fully ? Tightly seal your lips around the mouthpiece Step 3. Inhale as much air as you can through the mouthpiece. Don't breathe through your nose. ? Breathe in (inhale) slowly and deeply. ? Hold your breath long enough to keep the balls, piston, or disk raised for at least 3 to 5seconds, or as instructed by your healthcare provider. ? Exhale slowly to allow the balls, piston, or disk to fall before repeating again. Note: Some spirometers have an indicator to let you know that you are breathing in too fast. If the indicator goes off, breathe in more slowly. Step 4. Repeat the exercise regularly. ? Do sets of 10 exercises every hour while you're awake, or as instructed by your healthcare provider. Don't do more than 30 breaths in each set. ? If you were taught deep breathing and coughing exercises, do them regularly as instructed by your provider, nurse, or respiratory therapist. Follow-up care Make a follow-up appointment, or as directed by your healthcare provider. Also follow up with your provider as advised if your symptoms don't improve or continue to get worse. When to call your healthcare provider Call your healthcare provider right away if you have any of these: ? Fever 100.4? (38?C) or higher, or as advised by your provider ? Brownish, bloody, or smelly sputum (phlegm that you cough up) Call 911 Call 911 if any of these occur: ? Shortness of breath that doesn't get better after taking your medicine ? Cool, moist, pale, or blue skin ? Trouble breathing or swallowing, wheezing ? Fainting or loss of consciousness ? Feeling of dizziness or weakness, or a sudden drop in blood pressure ? Feeling very ill ? Lightheadedness ? Chest pain or rapid heart rate Last Reviewed Date: 2021 00:00:00 ? [id number] The [employer]. All rights reserved. This information is not intended as a substitute for professional medical care. Always follow your healthcare professional's instructions. [facility] Images from the original note were not included. 15 [facility] 14:01:39 Images from the original note were not included. [id number] Discharge Instructions: After Your Surgery You?ve just had surgery. During surgery, you were given medicine called anesthesia to keep you relaxed and free of pain. After surgery, you may have some pain or nausea. This is common. Here are some tips for feeling better and getting well after surgery. Going home Your healthcare provider will show you how to take care of yourself when you go home. They'll also answer your questions. Have an adult family member or friend drive you home. For the first 24 hours after your surgery: ? Don't drive or use heavy equipment. ? Don't make important decisions or sign legal papers. ? Take medicines as directed. ? Don't drink alcohol. ? Have someone stay with you, if needed. They can watch for problems and help keep you safe. Be sure to go to all follow-up visits with your healthcare provider. And rest after your surgery for as long as your provider tells you to. Coping with pain If you have pain after surgery, pain medicine will help you feel better. Take it as directed, before pain becomes severe. Also, ask your healthcare provider or pharmacist about other ways to control pain. This might be with heat, ice, or relaxation. And follow any other instructions your surgeon or nurse gives you. Stay on schedule with your medicine. Tips for taking pain medicine To get the best relief possible, remember these points: ? Pain medicines can upset your stomach. Taking them with a little food may help. ? Most pain relievers taken by mouth need at least 20 to 30 minutes to start to work. ? Don't wait till your pain becomes severe before you take your medicine. Try to time your medicine so that you can take it before starting an activity. This might be before you get dressed, go for a walk, or sit down for dinner. ? Constipation is a common side effect of some pain medicines. Call your healthcare provider before taking any medicines, such as laxatives or stool softeners, to help ease constipation. Also ask if you should skip any foods. Drinking lots of fluids and eating foods, such as fruits and vegetables, that are high in fiber can also help. Remember, don't take laxatives unless your surgeon has prescribed them. ? Drinking alcohol and taking pain medicine can cause dizziness and slow your breathing. It can even be deadly. Don't drink alcohol while taking pain medicine. ? Pain medicine can make you react more slowly to things. Don't drive or run machinery while taking pain medicine. Your healthcare provider may tell you to take acetaminophen to help ease your pain. Ask them how much you're supposed to take each day. Acetaminophen or other pain relievers may interact with your prescription medicines or other osbn-crf-pdvbtcd (OTC) medicines. Some prescription medicines have acetaminophen and other ingredients in them. Using both prescription and OTC acetaminophen for pain can cause you to accidentally overdose. Read the labels on your OTC medicines with care. This will help you to clearly know the list of ingredients, how much to take, and any warnings. It may also help you not take too much acetaminophen. If you have questions or don't understand the information, ask your pharmacist or healthcare provider to explain it to you before you take the OTC medicine. Managing nausea Some people have an upset stomach (nausea) after surgery. This is often because of anesthesia, pain, or pain medicine, less movement of food in the stomach, or the stress of surgery. These tips will help you handle nausea and eat healthy foods as you get better. If you were on a special food plan before surgery, ask your healthcare provider if you should follow it while you get better. Check with your provider on how your eating should progress. It may depend on the surgery you had. These general tips may help: ? Don't push yourself to eat. Your body will tell you when to eat and how much. ? Start off with clear liquids and soup. They're easier to digest. ? Next try semi-solid foods as you feel ready. These include mashed potatoes, applesauce, and gelatin. ? Slowly move to solid foods. Don?t eat fatty, rich, or spicy foods at first. ? Don't force yourself to have 3 large meals a day. Instead eat smaller amounts more often. ? Take pain medicines with a small amount of solid food, such as crackers or toast. This helps prevent nausea. When to call your healthcare provider Call your healthcare provider right away if you have any of these: ? You still have too much pain, or the pain gets worse, after taking the medicine. The medicine may not be strong enough. Or there may be a complication from the surgery. ? You feel too sleepy, dizzy, or groggy. The medicine may be too strong. ? Side effects, such as nausea or vomiting. Your healthcare provider may advise taking other medicines to treat these or may change your treatment plan.. ? Skin changes, such as rash, itching, or hives. This may mean you have an allergic reaction. Your provider may advise taking other medicines. ? The incision looks different (for instance, part of it opens up). ? Bleeding or fluid leaking from the incision site, and you weren't told to expect that. ? Fever of 100.4?F (38?C) or higher, or as directed by your healthcare provider. Call 911 Call 911 right away if you have: ? Trouble breathing ? Facial swelling If you have obstructive sleep apnea You were given anesthesia medicine during surgery to keep you comfortable and free of pain. After surgery, you may have more apnea spells because of this medicine and other medicines you were given. The spells may last longer than normal. At home: ? Keep using the continuous positive airway pressure (CPAP) device when you sleep. Unless your healthcare provider tells you not to, use it when you sleep, day or night. CPAP is a common device used to treat obstructive sleep apnea. ? Talk with your provider before taking any pain medicine, muscle relaxants, or sedatives. Your provider will tell you about the possible dangers of taking these medicines. ? Contact your provider if your sleeping changes a lot even when taking medicines as directed. Last Reviewed Date: 2023 00:00:00 ? [id number] The [employer]. All rights reserved. This information is not intended as a substitute for professional medical care. Always follow your healthcare professional's instructions. [facility] Patient feels she still have bad nausea. In PACU zofran,phenargan and Scop patch was given but still she feels nauseated and feels dizzy. Dr. Prince was notified, dr. Prince came at bed side and saw patient. Dr. Prince Ordered Amisulpride medicine for nausea. [facility] General Surgery Registered NurseMtmoAspirus Ironwood [id number] 07:51:19 Images from the original note were not included. [id number] Using an Incentive Spirometer An incentive spirometer is a device that helps you do deep breathing exercises after surgery. Or it helps lower the risk for breathing problems if you have a lung disease or condition. These exercises expand your lungs, aid in circulation, and may help prevent pneumonia. Deep breathing exercises also help you breathe better and improve the function of your lungs by: ? Keeping your lungs clear ? Strengthening your breathing muscles ? Helping prevent respiratory complications or problems The incentive spirometer gives you a way to take an active part in your recovery. A nurse or respiratory therapist will teach you breathing exercises. To do these exercises, you will breathe in through your mouth and not your nose. The incentive spirometer only works correctly if you breathe in through your mouth. Deep breathing expands the lungs, aids circulation, and helps prevent pneumonia. Your healthcare provider or their staff will tell you how to use the device, your targeted volume(s), and provide other helpful tips to prevent complications (such as pain, dizziness, feeling lightheaded) when blowing in the incentive spirometer. Steps to clear lungs Step 1. Exhale normally. Then, inhale normally. ? Relax and breathe out. Step 2. Place your lips tightly around the mouthpiece. ? Make sure the device is upright and not tilted. ? Sit up and breathe out (exhale) fully ? Tightly seal your lips around the mouthpiece Step 3. Inhale as much air as you can through the mouthpiece. Don't breathe through your nose. ? Breathe in (inhale) slowly and deeply. ? Hold your breath long enough to keep the balls, piston, or disk raised for at least 3 to 5seconds, or as instructed by your healthcare provider. ? Exhale slowly to allow the balls, piston, or disk to fall before repeating again. Note: Some spirometers have an indicator to let you know that you are breathing in too fast. If the indicator goes off, breathe in more slowly. Step 4. Repeat the exercise regularly. ? Do sets of 10 exercises every hour while you're awake, or as instructed by your healthcare provider. Don't do more than 30 breaths in each set. ? If you were taught deep breathing and coughing exercises, do them regularly as instructed by your provider, nurse, or respiratory therapist. Follow-up care Make a follow-up appointment, or as directed by your healthcare provider. Also follow up with your provider as advised if your symptoms don't improve or continue to get worse. When to call your healthcare provider Call your healthcare provider right away if you have any of these: ? Fever 100.4? (38?C) or higher, or as advised by your provider ? Brownish, bloody, or smelly sputum (phlegm that you cough up) Call 911 Call 911 if any of these occur: ? Shortness of breath that doesn't get better after taking your medicine ? Cool, moist, pale, or blue skin ? Trouble breathing or swallowing, wheezing ? Fainting or loss of consciousness ? Feeling of dizziness or weakness, or a sudden drop in blood pressure ? Feeling very ill ? Lightheadedness ? Chest pain or rapid heart rate Last Reviewed Date: 2021 00:00:00 ? [id number] [employer]. All rights reserved. This information is not intended as a substitute for professional medical care. Always follow your healthcare professional's instructions. [facility] [id number] 07:51:18 Images from the original note were not included. [id number] Preventing a Surgical Site Infection A risk of any surgery is an infection at the surgical site. The surgical site is a cut the surgeon makes in the skin to do the surgery. Surgical site infections can range in type. It may be a minor skin infection. Or it may be severe and include tissue under the skin or other organs. In some cases, a severe infection can cause . This sheet tells you: ? About surgical site infections ? What hospitals do to prevent them ? How they?re treated if they do occur ? What you can do to prevent an infection Hand washing reduces the risk of infection. What causes a surgical site infection? Germs are everywhere. They?re on your skin, in the air, and on things you touch. Many germs are good. Some are harmful. Surgical site infections occur when harmful germs enter your body through the incision in your skin. Some infections are caused by germs that are in the air or on objects. But most are caused by germs found on and in your own body. Who is at risk for a surgical site infection? Anyone can have a surgical site infection. Your risk is higher if you: ? Are an older adult ? Have a weak immune system ? Have other health conditions such as diabetes ? Take certain medicines, such as steroids ? Are a smoker ? Have certain types of surgery, such as abdominal surgery ? Have poor nutrition ? Are very overweight ? Have a surgery that lasts longer than 2 hours What are the symptoms of a surgical site infection? An infection often shows up as skin redness, pain, and swelling around the incision that gets worse. Later a cloudy or greenish-yellow fluid may come from the incision. The fluid may smell bad. The incision may pull apart or open up. You are likely to have a fever and may feel very ill. Symptoms can appear any time. They may happen from hours to weeks after surgery. Implants such as an artificial knee or hip can become infected at any time after the surgery. How is a surgical site infection treated? ? A surgical site infection is treated with antibiotics. The type of medicine you get will depend on what may be causing the infection. Most serious wound infections need wound care. In some cases, surgery may be needed on the infected wound. ? An infected skin wound may be reopened and cleaned. A deep wound may need to be packed with gauze. The gauze is changed often until the wound starts to heal from the inside out. Your healthcare provider will decide the best way to treat your infection. ? If an infection occurs where an implant is placed, the implant may be removed. ? If you have an infection deeper in your body, you may need surgery to treat it. What hospitals do to prevent surgical site infections Many hospitals take these steps to help prevent surgical site infections: ? Handwashing. Before the surgery, your surgeon and all surgery staff scrub their hands and arms with an antiseptic soap. ? Clean skin. The site where your incision is made is carefully cleaned with an antiseptic solution. ? Sterile clothing and drapes. The surgical team wears medical uniforms. These are known as scrub suits. They wear long-sleeved surgical gowns, masks, caps, shoe covers, and sterile gloves. Your body is fully covered with a large sterile sheet (sterile drape). There is an opening in the sheet where the incision is made. ? Clean air. Operating rooms have special air filters. They use positive pressure airflow to prevent unfiltered air from entering the room. ? Careful use of antibiotics. Antibiotics are given no more than 60 minutes before the incision is made. They are generally stopped within 24 hours after surgery. This depends on the type of surgery. This helps kill germs but prevents problems that can occur when antibiotics are taken longer. ? Controlled blood sugar levels. Your blood sugar level may rise. This can be because of the stress of the surgery. Your blood sugar level is watched closely to make sure it stays within a normal range. High blood sugar delays wound healing. This increases the risk of infection. ? Controlled body temperature. A ceefj-dkwr-depkjj temperature during or after surgery prevents oxygen from reaching the wound. This makes it harder for your body to fight infection. Hospitals may warm IV fluids, increase the temperature in the operating room, and provide warm-air blankets. ? Safe hair removal. Any hair that must be removed is clipped right before the incision, not shaved with a razor. This prevents tiny nicks and cuts where germs can enter. ? Wound care. After surgery, a closed wound is covered with a sterile dressing for 1 to 2 days. Open wounds are packed with sterile gauze and covered with a sterile dressing. What you can do to prevent a surgical site infection ? Ask questions. Learn what your hospital is doing to prevent infection. ? If instructed, shower or bathe with plain soap the night before and the day of your surgery. Follow all instructions you're given. You may be asked to use a special cleanser that you don?t rinse off. ? If you smoke, stop as long as possible before and after the surgery. Ask your healthcare provider about ways to quit. ? Take antibiotics only when your healthcare provider tells you to. Using antibiotics when they?re not needed can create germs that are harder to kill. Finish the entire prescription of your antibiotics. Take them even if you feel better. ? Ask healthcare workers to clean their hands with plain soap and water or with an alcohol-based hand black off worker before and after caring for you. Don?t be afraid to remind them. ? After surgery, eat healthy foods. Care for your incision as directed by your healthcare team. When to call your healthcare provider Call your healthcare provider if you have any of these: ? Pain at the surgical site that gets worse ? A red streak, worse redness, or puffiness near the incision ? Yellowish, cloudy, or bad-smelling fluid from the incision ? Stitches that dissolve before the wound heals ? Fever of 100.4? F ( 38?C ) or higher, or as advised by your healthcare provider ? A tired feeling that doesn?t go away Last Reviewed Date: 2021 00:00:00 ? [id number] [employer]. All rights reserved. This information is not intended as a substitute for professional medical care. Always follow your healthcare professional's instructions. [facility] [id number] 00:44:24Upcoming Encounters Pending Results Name Type Priority Associated Diagnoses Date /Time ECG 12 lead ECG Routine Preop testing 05/04/2024 5:42 PM TELETYPEWRITER OPERATOR Scheduled Orders Name Type Priority Associated Diagnoses Orde r Schedule ECG 12 lead ECG Routine Preop testing Once for 1 Occurrences starting 05/04/2024 until 05/04/2024 Scheduled Procedures Name Priority Associated Diagnoses Date/Ti me COLPORRHAPHY Rectocele Stress incontinence (female) (male) Hypermobility of urethra Incomplete defecation 05/12/2024 7:30 AM TELETYPEWRITER OPERATOR BLADDER SLING, FEMALE Rectocele Stress incontinence (female) (male) Hypermobility of urethra Incomplete defecation 05/12/2024 7:30 AM TELETYPEWRITER OPERATOR CYSTOSCOPY Rectocele Stress incontinence (female) (male) Hypermobility of urethra Incomplete defecation 05/12/2024 7:30 AM TELETYPEWRITER OPERATOR Health Maintenance Due Date Last Done Comments Lipid Panel 1985 Annual Physical 10/29/1986 Varicella Vaccines (1 of 2 - 13+ 2-dose series) 10/29/1996 DTaP/Tdap/Td Vaccines (1 - Tdap) 10/29/2002 Hepatitis B Vaccines (1 of 3 - 19+ 3-dose series) 10/29/2002 Pap Smear 10/29/2004 Cervical Cancer Screening 10/29/2013 HPV/Cotest 10/29/2013 Mammogram 2023 Influenza Vaccine (#1) 2023 HIB Vaccines Aged Out No longer eligi ble based on patient's age to complete this topic HPV Vaccines Aged Out No longer eligi ble based on patient's age to complete this topic Hepatitis A Vaccines Aged Out No long er eligible based on patient's age to complete this topic IPV Vaccines Aged Out No longer eligi ble based on patient's age to complete this topic Meningococcal Vaccine Aged Out No idalia desmond eligible based on patient's age to complete this topic Pneumococcal Vaccine: Pediat rics (0 to 5 Years) and At-Risk Patients (6 to 64 Years) Aged Out No longer eligible b ased on patient's age to complete this topic Rotavirus Vaccines Aged Out No longer eligible based on patient's age to complete this topic [id number] [place] [id number] 00:44:24 Diagnosis Preop testing Unspecified pre-operative examination Rectocele Stress incontinence (female) (male) Hypermobility of urethra Incomplete defecation [id number] 00:44:24 [facility]
[2024-08-06] MEDS ORDERED: HYDROCODONE/APAP 7.5/325 MG TAB ONE (12:30)
[2024-08-06] MEDS ORDERED: KETOROLAC 30 MG/ML INJ ONE (12:30)
[2024-08-06] MEDS ORDERED: LIDOCAINE HCL JELLY 2% 6 ML SYRINGE TOP ONE (12:30)
--- NOTE | 2024-08-06 13:21 | EDPHYS ---
Physician Documentation [facility] Name: Sandip Purvis Age: 38 yrs Sex: Female : 1985 Arrival Date: 08/06/2024 Time: 11:42 Bed 13 Private MD: ED Physician Luis Crump HPI: 08/06 12:35 This 38 yrs old Female presents to ER via Ambulatory with complaints of Hemorrhoids. sb4 12:35 The patient presents to the emergency department with pain in the rectal area. Onset: sb4 The symptoms/episode began/occurred 2 day(s) ago. developed a hemorrhoid 2 days ago. has a history of them and has procedures done prior. has at appt with colorectal in 3 days but could not stand the pain. has been using preparation H and taking magnesium. denies any bleeding. Historical: - Allergies: 12:25 PENICILLINS; db 12:25 Sulfa (Sulfonamide Antibiotics); db - PMHx: 12:25 PE; Tachycardia; db - PSHx: 12:25 breast; section; Tummy tuck; db - Immunization history:: Adult Immunizations unknown. - Infectious Disease History:: Denies. - Social history:: Smoking status: Patient denies any tobacco usage or history of. ROS: 12:35 Constitutional: Negative for fever, chills, and weight loss, sb4 12:35 Abdomen/GI: Positive for rectal pain, 12:35 All other systems are negative, Exam: 12:35 Head/Face: Normocephalic, atraumatic. Eyes: Extra-ocular motions intact. Periorbital sb4 areas with no swelling, redness, or edema. ENT: Mucous membranes moist. Respiratory: No increased work of breathing, no retractions or nasal flaring. Abdomen/GI: Soft, non-tender, no distension. 12:35 Constitutional: The patient appears alert, awake, uncomfortable, 12:35 Abdomen/GI: Rectal exam: hemorrhoid(s), external, with pain, Vital Signs: 11:58 Temp 98; db 12:01 BP 108 / 55; Pulse 102; Resp 16; Pulse Ox 97% on R/A; Weight 77.11 kg; Height 5 ft. 4 em1 in. ; Pain 7/10; 13:00 BP 100 / 56; Pulse 85; Resp 16; Pulse Ox 99% on R/A; db 13:30 BP 100 / 55; Pulse 80; Resp 16; Pulse Ox 98% on R/A; db 12:01 Body Mass Index 29.18 (77.11 kg, 162.56 cm) em1 12:01 Pain Scale: Adult em1 MDM: 11:45 Medical Screening Exam initiated sb4 13:00 Data reviewed: vital signs, nurses notes, and as a result, I will discharge patient. sb4 Counseling: I had a detailed discussion with the patient and/or guardian regarding the historical points, exam findings, and any diagnostic results supporting the discharge/admit diagnosis, the need for outpatient follow up, a furniture installer, to return to the emergency department if symptoms worsen or persist or if there are any questions or concerns that arise at home. Administered Medications: 12:30 Drug: Ketorolac IM 30 mg IM once Route: IM; Site: left ventrogluteal; db 13:44 Follow up: Response: No adverse reaction; Pain is decreased db 12:33 Drug: Lidocaine Mucous Membrane Gel 2 % 1 application Mucous Membrane once; onto db hemorrhoid Route: Mucous Membrane; 13:44 Follow up: Response: No adverse reaction db 12:33 Drug: Hydrocodone-Acetaminophen PO (7.5 mg-325 mg) 1 tabs PO once Route: PO; db 13:44 Follow up: Response: No adverse reaction db Disposition: 08/07 13:00 Co-signature as Attending Physician, Luis Crump MD I agree with the assessment and azael plan of care. Disposition Summary: 08/06/24 13:20 Discharge Ordered Notes: Location: Home sb4 Problem: new sb4 Symptoms: have improved sb4 Condition: Stable sb4 Diagnosis - External hemorrhoids sb4 Followup: sb4 - With: Private Physician - When: 2 - 3 days - Reason: Recheck today's complaints, Re-evaluation by your physician Discharge Instructions: - Discharge Summary Sheet sb4 - How to Take a Sitz Bath sb4 - Hemorrhoids, Wveu-us-Grev sb4 Forms: - Patient Portal Instructions sb4 - Leadership Thank You Letter sb4 Prescriptions: - ketorolac 10 mg Oral tablet - take 1 tablet ORAL route every 6 hours for 3 days; 12 tablet; Refills: 0, sb4 Product Selection Permitted - Anusol-HC 25 mg Rectal Suppository - insert 1 suppository RECTAL route every 12 hours As needed; 20 suppository; sb4 Refills: 0, Product Selection Permitted Signatures: Luis Crump MD MD cha Benton, Danielle RN RN Bambi Cuello PA-C PA-C sb4 Corrections: (The following items were deleted from the chart) 08/06 12:36 12:35 developed a hemorrhoid 2 days ago. has a history of them and has procedures done sb4 prior. has at appt with colorectal in 3 days but could not stand the pain. has been using preparation H and taking magnesium. sb4
--- NOTE | 2024-08-06 13:21 | ER ---
Nurse's Notes [facility] Name: Sandip Purvis Age: 38 yrs Sex: Female : 1985 Arrival Date: 08/06/2024 Time: 11:42 Bed 13 Private MD: Diagnosis: External hemorrhoids Presentation: 08/06 11:58 Chief complaint: Patient states: HEMORRHOIDS THAT ARE "ROCK HARD" AND PAINFUL TO TOUCH db X 2 DAYS. DENIES BLEEDING. HX OF RECTAL REPAIR. Coronavirus screen: Client denies travel out of the [place] in the last 14 days. At this time, the client does not indicate any symptoms associated with coronavirus-19. Ebola Screen: Patient negative for fever greater than or equal to 101.5 degrees Fahrenheit, and additional compatible Ebola Virus Disease symptoms Patient denies exposure to infectious person. Patient denies travel to an Ebola-affected area in the 21 days before illness onset. No symptoms or risks identified at this time. Initial Sepsis Screen: Does the patient meet any 2 criteria? No. Patient's initial sepsis screen is negative. Does the patient have a suspected source of infection? No. Patient's initial sepsis screen is negative. Risk Assessment: Do you want to hurt yourself or someone else? Patient reports no desire to harm self or others. Onset of symptoms was August 04, 2024. 11:58 Method Of Arrival: Ambulatory db 11:58 Acuity: BETSY 4 db Triage Assessment: 12:00 General: Appears in no apparent distress. uncomfortable, Behavior is calm, cooperative. db Pain: Complains of pain in anus. Neuro: Level of Consciousness is awake, alert, obeys commands, Oriented to person, place, time, situation. Respiratory: Airway is patent Respiratory effort is even, unlabored, Respiratory pattern is regular, symmetrical. Historical: - Allergies: 12:25 PENICILLINS; db 12:25 Sulfa (Sulfonamide Antibiotics); db - PMHx: 12:25 PE; Tachycardia; db - PSHx: 12:25 breast; section; Tummy tuck; db - Immunization history:: Adult Immunizations unknown. - Infectious Disease History:: Denies. - Social history:: Smoking status: Patient denies any tobacco usage or history of. Screenin:42 [facility] ED Fall Risk Assessment (Adult) History of falling in the last 3 months, db including since admission No falls in past 3 months (0 pts) Confusion or Disorientation No (0 pts) Intoxicated or Sedated No (0 pts) Impaired Gait No (0 pts) Mobility Assist Device Used No (0 pt) Altered Elimination No (0 pt) Score/Fall Risk Level 0 - 2 = Low Risk Oriented to surroundings, Maintained a safe environment. Abuse screen: Denies threats or abuse. Denies injuries from another. Nutritional screening: No deficits noted. Tuberculosis screening: No symptoms or risk factors identified. Assessment: 13:00 Reassessment: Patient appears in no apparent distress at this time. Patient and/or db family updated on plan of care and expected duration. Pain level reassessed. Patient is alert, oriented x 3, equal unlabored respirations, skin warm/dry/pink. General: Appears in no apparent distress. comfortable, Behavior is calm, cooperative. Pain: Complains of pain in anus. Neuro: Level of Consciousness is awake, alert, obeys commands, Oriented to person, place, time, situation. Respiratory: Airway is patent Respiratory effort is even, unlabored, Respiratory pattern is regular, symmetrical. Vital Signs: 11:58 Temp 98; db 12:01 BP 108 / 55; Pulse 102; Resp 16; Pulse Ox 97% on R/A; Weight 77.11 kg; Height 5 ft. 4 em1 in. ; Pain 7/10; 13:00 BP 100 / 56; Pulse 85; Resp 16; Pulse Ox 99% on R/A; db 13:30 BP 100 / 55; Pulse 80; Resp 16; Pulse Ox 98% on R/A; db 12:01 Body Mass Index 29.18 (77.11 kg, 162.56 cm) em1 12:01 Pain Scale: Adult em1 ED Course: 11:43 Patient arrived in ED. im 11:44 Bambi Mchugh PA-C is PHCP. sb4 11:44 Luis Crump MD is Attending Physician. sb4 12:00 Arm band placed on Patient placed in an exam room. EKG completed in triage. Results db shown to . 12:21 Em Barone, RN is Primary Nurse. db 12:25 Triage completed. 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 db 13:41 Patient did not have IV access during this emergency room visit. db 13:42 Patient has correct armband on for positive identification. Bed in low position. Call db light in reach. Side rails up X 1. Provided Education on: discharge, prescriptions and followup. Pulse ox on. NIBP on. Administered Medications: 12:30 Drug: Ketorolac IM 30 mg IM once Route: IM; Site: left ventrogluteal; db 13:44 Follow up: Response: No adverse reaction; Pain is decreased db 12:33 Drug: Lidocaine Mucous Membrane Gel 2 % 1 application Mucous Membrane once; onto db hemorrhoid Route: Mucous Membrane; 13:44 Follow up: Response: No adverse reaction db 12:33 Drug: Hydrocodone-Acetaminophen PO (7.5 mg-325 mg) 1 tabs PO once Route: PO; db 13:44 Follow up: Response: No adverse reaction db Medication: 13:42 VIS not applicable for this client. db Outcome: 13:20 Discharge ordered by . sb4 13:42 Discharged to home ambulatory, db 13:42 Condition: stable 13:42 Discharge instructions given to patient, Instructed on discharge instructions, follow up and referral plans. Prescriptions given X 2, 13:45 Patient left the ED. db Signatures: Onur Camarena em1 Em Barone RN RN db Bambi Mchugh PA-C PAKayla sb4 Lisa Maya im Corrections: (The following items were deleted from the chart) 13:42 13:41 No provider procedures requiring assistance completed. db db
[2024-08-06 13:49] VITALS: TEMP 98
[2024-08-06 13:52] VITALS: BP 100/55; O2SAT 98
== END 2024-08-06 13:45 | disposition home or self-care (01) ==
LOC: ER 11:42
DX: K64.4 Residual hemorrhoidal skin tags (principal)
CPT/HCPCS: 96372; 99284